=== PATIENT | male | born 1945 | race Caucasian/White ===

== ENCOUNTER 2016-07-06 07:34 | Emergency (ER) | payer MEDICARE, MEDICAID ==
[2016-07-06 07:48] VITALS: TEMP 98.8; BMI 32.6
[2016-07-06] MEDS ORDERED: ONDANSETRON HCL 4 MG/2 ML VIAL IV ONE (07:50)
[2016-07-06] MEDS ORDERED: HYDROmorphone 1 MG INJECTION IV ONE (07:50)
[2016-07-06] MEDS ORDERED: NS 1,000 ML IV ONE (07:50)
[2016-07-06 08:22] LABS: AUTOMATED BASOPHIL 0.6 % (0-2); AUTOMATED EOSINOPHIL 0.4 % (0-5); AUTOMATED MONOCYTE 11.6 % (3-10); AUTOMATED NEUTROPHIL 76.4 % (45-76); MPV 6.9 fL (7.4-10.4)
[2016-07-06 08:26] LABS: PT-INR 1.2
[2016-07-06 08:27] LABS: BLOOD UREA NITROGEN 31 MG/DL (9-20); CALC CORRECTED 9.2 MG/DL (8.4-10.2); CALCIUM 8.8 MG/DL (8.4-10.2); CALCULATED OSMOLALITY 276 MOs/Kg (270-290); CHLORIDE 111 mEq/L (98-107); GLUCOSE 98 MG/DL (70-99); SODIUM LEVEL 140 mEq/L (137-146)
--- NOTE | 2016-07-06 10:57 | EDPRACDOC ---
- General Information Chief Complaint: Lower Leg Pain Stated Complaint: LEFT LEG PAIN Time Seen by Provider: 07/06/16 07:36 Information Source: Patient Home Medications: Home Medications Aspirin (Enteric Coated) [Halfprin] 81 mg PO DAILY 02/20/16 Metoprolol Tartrate 50 mg PO BID 02/20/16 Omeprazole 20 mg PO DAILY 02/20/16 Simvastatin 40 mg PO QHS 02/20/16 Amlodipine Besylate [Norvasc] 5 mg PO DAILY 07/06/16 Ketorolac Tromethamine 10 mg PO Q6H PRN #20 tab 07/06/16 Allergies/Adverse Reactions: Allergies Allergy/AdvReac Type Severity Reaction Status Date / Time No Known Allergies Allergy Verified 07/06/16 07:45 - History of Present Illness Onset: 3 weeks Medications/Treatment LEGAL SERVICES MANAGER Treated With Medication LEGAL SERVICES MANAGER YES Medications LEGAL SERVICES MANAGER (Medication/ goody powder Dose/Time) EMS Treatment BLS IV No Mechanism: Denies: Blunt Trauma Circumstances: Reports: None History of: Reports: Arthritis Severity: Reports: Mild Able to Bear Weight: Fully Pain In: Reports: Leg, Knee - Treatment Prior to ED Arrival Reported Medications/Treatment LEGAL SERVICES MANAGER Treated With Medication LEGAL SERVICES MANAGER YES Medications LEGAL SERVICES MANAGER (Medication/ goody powder Dose/Time) EMS Treatment BLS IV No ED Past Medical History - History Reviewed Yes Nurses notes reviewed and agree except as marked - Patient Medical History Cardiac History: Reports: Coronary Artery Disease, Hypertension, Cardiac Catheterization, 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 inguinal), Other (RIGHT AND LEFT HANDS, RIGHT KNEE) - Family Medical History Reports: Diabetes (Mother), Cancer (Sister with back CA & stomach). Denies: Hypertension, Stroke, Cardiac Disorders - Social Medical History Smoking Status: Former smoker Social History: Denies: Substance Use Disorder EDM Review of Systems - Review of Systems ROS Negative Except as Marked: Yes All systems reviewed and were negative except as marked - Physical Exam Constitutional: Alert (Awake), No apparent distress Oriented to: Time, Person, Place Last recorded Vital Signs: Last Vital Signs Temp 98.8 F 07/06/16 07:45 Pulse 69 07/06/16 10:19 Resp 18 07/06/16 10:19 BP 122/70 07/06/16 10:19 Pulse Ox 97 07/06/16 10:19 Oxygen Pulse Oxygen Saturation 97 O2 Device Room Air Oxygen Flow Rate Fraction of Inspired Oxygen ( FIO2) - HEENT Head: Normal ( normocephalic) Eye Exam: Normal (PERRL, EOMI, Sclera white) Oropharynx: Normal (Pharynx:Moist without exudate,Gums-no swelling) Tympanic Membrane: Normal ENT EAC: Normal TMJ: Normal Nose: No Symptoms Reported (septum midline) Neck: Normal (FROM, trachea at midline) - Respiratory/Cardiovascular Respiratory: Normal - CTA (BBS clear to auscultation without adventitious sounds ) Cardiovascular: Normal (RRR without murmur, gallop or rub) - GI Auscultation: Normal (NABS) Palpation: Normal (Soft,No rebound or guarding, non distended) Tenderness: Non tender Caldwell's Sign: Negative - Musculoskeletal Back: Normal (Non-Tender) Extremities: Normal (Normal tone, Pulses 2+ No cyanosis or edema, FROM), Pedal Pulse, Other (MILD SWELLING POPLITEAL FOSSA) - Integumentary Skin: Normal, Warm, Dry Lymphatics: Normal (no adenopathy) - Neurologic Memory Impaired: Normal Motor Function: Normal (Normal tone, Pulses 2+ No cyanosis or edema, FROM) Cranial Nerve: Normal (CN II-X11 intact sensation, strength 5/5) Cerebellar: Normal Mood Description: Normal Perception: Normal - Results 07/06/16 08:02 07/06/16 08:02 WBC 7.6 xk/uL (3.8-10.8) 07/06/16 08:02 RBC 4.74 xM/uL (4.70-6.10) 07/06/16 08:02 Hgb 13.7 g/dL (14.0-18.0) L 07/06/16 08:02 Hct 40.8 % (42-52) L 07/06/16 08:02 MCV 86 fL (80-94) 07/06/16 08:02 MCH 28.9 pg (27-32) 07/06/16 08:02 MCHC 33.6 g/dl (33-36) 07/06/16 08:02 RDW 15.4 % (11.5-14.5) H 07/06/16 08:02 Plt Count 428 xk/uL (130-400) H 07/06/16 08:02 MPV 6.9 fL (7.4-10.4) L 07/06/16 08:02 Neut % (Auto) 76.4 % (45-76) H 07/06/16 08:02 Lymph % (Auto) 11.0 % (17-44) L 07/06/16 08:02 [place] % (Auto) 11.6 % (3-10) H 07/06/16 08:02 Eos % (Auto) 0.4 % (0-5) 07/06/16 08:02 Baso % (Auto) 0.6 % (0-2) 07/06/16 08:02 Absolute Neuts (auto) 5.78 xk/uL (1.7-8.2) 07/06/16 08:02 Absolute Lymphs (auto) 0.84 xk/uL (0.65-4.75) 07/06/16 08:02 PT 12.0 SEC (9.2-11.2) H 07/06/16 08:02 INR 1.2 07/06/16 08:02 Sodium 140 mEq/L (137-146) 07/06/16 08:02 Potassium 4.1 mEq/L (3.5-5.1) 07/06/16 08:02 Chloride 111 mEq/L (98-107) H 07/06/16 08:02 Carbon Dioxide 16 mMOL/L (22-33) L 07/06/16 08:02 Anion Gap 17 mEq/L (8-16) H 07/06/16 08:02 BUN 31 MG/DL (9-20) H 07/06/16 08:02 Creatinine 1.50 MG/DL (0.66-1.25) H 07/06/16 08:02 Estimated GFR (MDRD) 46 mL/min (>=60) L 07/06/16 08:02 Glucose 98 MG/DL (70-99) 07/06/16 08:02 Calculated Osmolality 276 MOs/Kg (270-290) 07/06/16 08:02 Calcium 8.8 MG/DL (8.4-10.2) 07/06/16 08:02 Corrected Calcium 9.2 MG/DL (8.4-10.2) 07/06/16 08:02 Total Bilirubin 0.4 MG/DL (0.2-1.3) 07/06/16 08:02 AST 29 IU/L (17-59) 07/06/16 08:02 ALT 29 IU/L (21-72) 07/06/16 08:02 Alkaline Phosphatase 90 IU/L (50-160) 07/06/16 08:02 Total Protein 7.0 G/DL (6.3-8.2) 07/06/16 08:02 Albumin 3.6 G/DL (3.5-5.0) 07/06/16 08:02 Lab Results 07/06/16 07/06/16 07/06/16 08:02 08:02 08:02 WBC 7.6 RBC 4.74 Hgb 13.7 L Hct 40.8 L MCV 86 MCH 28.9 MCHC 33.6 RDW 15.4 H Plt Count 428 H MPV 6.9 L Neut % (Auto) 76.4 H Lymph % (Auto) 11.0 L [place] % (Auto) 11.6 H Eos % (Auto) 0.4 Baso % (Auto) 0.6 Absolute Neuts (auto) 5.78 Absolute Lymphs (auto) 0.84 PT 12.0 H INR 1.2 Sodium 140 Potassium 4.1 Chloride 111 H Carbon Dioxide 16 L Anion Gap 17 H BUN 31 H Creatinine 1.50 H Estimated GFR (MDRD) 46 L Glucose 98 Calculated Osmolality 276 Calcium 8.8 Corrected Calcium 9.2 Total Bilirubin 0.4 AST 29 ALT 29 Alkaline Phosphatase 90 Total Protein 7.0 Albumin 3.6 Decision Time to Discharge: 10:55 - Departure Yes I personally saw and evaluated the patient. Disposition: Home Condition: Good Final Diagnosis: LEFT LOWER EXTREMITY SWELLING, Ramirez's cyst of knee Instructions: Leg Edema (ED) Education/Counseling Given To: Patient Education/Counseling Given Regarding: Diagnosis, Treatment Prescriptions: Ketorolac Tromethamine 10 mg PO Q6H PRN #20 tab PRN Reason: Pain
--- NOTE | 2016-07-06 11:19 | DIRPT ---
CLINICAL DATA: Left knee and calf pain 5 days. EXAM: Left LOWER EXTREMITY VENOUS DOPPLER ULTRASOUND TECHNIQUE: Lang-scale sonography with graded compression, as well as color Doppler and duplex ultrasound were performed to evaluate the lower extremity deep venous systems from the level of the common femoral vein and including the common femoral, femoral, profunda femoral, popliteal and calf veins including the posterior tibial, peroneal and gastrocnemius veins when visible. The superficial great saphenous vein was also interrogated. Spectral Doppler was utilized to evaluate flow at rest and with distal augmentation maneuvers in the common femoral, femoral and popliteal veins. COMPARISON: None. FINDINGS: Contralateral Common Femoral Vein: Respiratory phasicity is normal and symmetric with the symptomatic side. No evidence of thrombus. Normal compressibility. Common Femoral Vein: No evidence of thrombus. Normal compressibility, respiratory phasicity and response to augmentation. Saphenofemoral Junction: No evidence of thrombus. Normal compressibility and flow on color Doppler imaging. Profunda Femoral Vein: No evidence of thrombus. Normal compressibility and flow on color Doppler imaging. Femoral Vein: No evidence of thrombus. Normal compressibility, respiratory phasicity and response to augmentation. Popliteal Vein: No evidence of thrombus. Normal compressibility, respiratory phasicity and response to augmentation. Calf Veins: No evidence of thrombus. Normal compressibility and flow on color Doppler imaging. Superficial Great Saphenous Vein: No evidence of thrombus. Normal compressibility and flow on color Doppler imaging. Venous Reflux: None. Other Findings: Ramirez cyst over the left popliteal fossa measuring 1.8 x 2.8 x 3.9 cm. IMPRESSION: No evidence of deep venous thrombosis. Ramirez cyst over the left popliteal fossa measuring 1.8 x 2.8 x 3.9 cm. Electronically Signed By: Kyle Roe M.D. On: 07/06/2016 11:16
[2016-07-06 11:23] VITALS: BP 118/74; PULSE 68
== END 2016-07-06 11:21 | disposition home or self-care (01) ==
LOC: ED 07:34
DX: M79.89 Other specified soft tissue disorders (principal); M71.20 Synovial cyst of popliteal space [Baker], unspecified knee
CPT/HCPCS: 36415; 80053; 85025; 85610; 93971; 96361; 96374; 96375; 99283; J1170; J2405